=== PATIENT | female | born 1995 | race Caucasian/White ===

== ENCOUNTER 2016-07-16 08:00 | Observation (INO) | payer MEDICAID ==
[~2016-07-16] VITALS: Ht 165.1 cm; Wt 108.9 kg
[2016-07-23] MEDS ORDERED: SYNTHROID25 MCG PO (15:10)
[2016-07-23] MEDS ORDERED: PRENATAL VIT1 TAB PO (15:10)
[2016-07-28] MEDS ORDERED: COLACE-DPS100 MG PO (06:17)
[2016-07-28] MEDS ORDERED: MOTRIN-DPS800 MG PO (06:18)
[2016-07-28] MEDS ORDERED: PERCOCET 5 DPS1 TAB PO (06:18)
[2016-07-28] MEDS ORDERED: NIPPLECREAM TP (06:19)
--- NOTE | 2016-09-27 09:17 | DS ---
ADMIT: 07/21/2016 RM/LOC: 201 [facility] MR#: [id number] [address] [address] ALESSANDRA RYAN Bonifacio [address] [place], [place] [address] General Discharge Summary SEX: F AGE: 20 : 1995 ADMISSION DATE: 07/21/2016 DISCHARGE DATE: 07/22/2016 ADMISSION DIAGNOSIS: Intrauterine at term. DISCHARGE DIAGNOSIS: Intrauterine at term. The patient had failed induction of labor and was dismissed to home undelivered. Jaqueline Raza MD/ nic JOB #: [id number] CC: Jaqueline Raza MD, Attending Physician Fadumo Mcdonald MD, Family Physician
== END 2016-07-22 23:53 | disposition home or self-care (01) ==
LOC: EDSTATUS 08:00 → BC 08:00 → 2LDRP 07-21 18:50
PROVIDERS: ADMIT Obstetrics & Gynecology
DX: O61.9 Failed induction of labor, unspecified (principal); Z3A.40 40 weeks gestation of pregnancy; Z88.0 Allergy status to penicillin; Z88.8 Allergy status to other drugs, medicaments and biological substances; Z79.899 Other long term (current) drug therapy

== ENCOUNTER 2016-07-23 22:28 | Inpatient (IN) | payer MEDICAID ==
[~2016-07-23] VITALS: Ht 165.1 cm; Wt 108.9 kg
[~2016-07-23 22:28] MED LIST: PRENATAL VIT1 TAB PO; SYNTHROID25 MCG PO
--- NOTE | 2016-07-27 08:52 | HP ---
ADMIT: 07/23/2016 RM/LOC: 228 [facility] MR#: [id number] [address] [facility] [address] [place], [place] [address] ALESSANDRA HOANG [address] [place] [address] History and Physical SEX: F AGE: 20 : 1995 DATE OF SERVICE: CHIEF COMPLAINT: Uterine contractions. HISTORY OF PRESENT ILLNESS: This is a 20-year-old female, 1, para 0, who presented [facility] with an intrauterine at 41 weeks' gestation with estimated date of confinement of 07/16/2016. She presents with complaints of uterine contractions increasing in frequency and intensity. Her has been complicated by hypothyroidism and obesity. At the time of admission, she was noted to be 4 cm dilated and evelyn every 5 minutes. heart tones were also noted to be 170s with minimal variability. Therefore, she was admitted for labor. LABORATORY DATA: Blood type is O positive. Antibody screen negative. HIV negative. Hepatitis B surface antigen negative. RPR nonreactive. Rubella immune. Gonorrhea/Chlamydia is negative. Pap is negative. Quad screen negative. Diabetic screen is 97. Group B strep is negative. PAST MEDICAL HISTORY: Significant for hypothyroidism and depression. She denies hypertension, diabetes, asthma, kidney, or thyroid disease. PAST SURGICAL HISTORY: Tonsillectomy in 2004. SOCIAL HISTORY: She is not . The father of baby is involved. She denies tobacco, alcohol, or drug use. ALLERGIES: PENICILLIN AND CEPHALOSPORINS. CURRENT MEDICATIONS: 1. vitamins. 2. Synthroid. PHYSICAL EXAMINATION: VITAL SIGNS: Temperature 98.4, blood pressure 135/89, pulse 85, respirations 18. GENERAL: This is a pleasant female, in no acute distress. HEENT: Head is normocephalic, atraumatic. Pupils are equal, round, react to light and accommodation. Extraocular muscles are intact. NECK: Supple. HEART: Regular rate and rhythm. LUNGS: Clear bilaterally. ABDOMEN: Soft, nontender, nondistended, gravid. EXTREMITIES: Nontender. heart tones are 175 to 180 baseline, minimal variability is present, decelerations are absent, accelerations are absent as well, uterine ADMIT: 07/23/2016 RM/LOC: 228 [facility] MR#: [id number] [address] [address] ALESSANDRA HOANG [address] [place] [address] History and Physical SEX: F AGE: 20 : 1995 contractions every 4 minutes. Her cervix is 4 cm, 80%, -2 station. IMPRESSION: This is a 20-year-old female, 1, para 0, with an intrauterine at 41 weeks' gestation in labor. PLAN: At this time, we do plan to admit the patient for labor and monitoring. We will augment as needed. We will try traditional resuscitation measures including IV fluids, oxygen, position changes to see if variability of the baby's heart rate improves. If heart tones remain reassuring, then we will allow her to continue laboring. If the heart tones are persistently tachycardic with minimal variability, then we will discuss section for delivery. Vesta Albert MD/ nic JOB #: [id number] CC: Jaqueline Raza, Attending Physician Jaqueline Raza, Family Physician
--- NOTE | 2016-07-27 08:58 | OR ---
ADMIT: 07/23/2016 RM/LOC: 228 [facility] MR#: [id number] [facility] [address] [place], [place] [address] ALESSANDRA HOANG [address] [place] [address] Operative/Delivery Room Report SEX: F AGE: 20 : 1995 SURGERY DATE: 07/24/2016 SURGEON: Vesta Albert MD PREOPERATIVE DIAGNOSES: 1. Intrauterine at 41 weeks. 2. Labor. 3. Nonreassuring heart tones. POSTOPERATIVE DIAGNOSES: 1. Intrauterine at 41 weeks. 2. Labor. 3. Nonreassuring heart tones. 4. With delivery of a viable male at 0223 hours weighing 8 pounds 8 ounces, with scores of 8 at 1 minute, 9 at 5 minutes. PROCEDURE: Low transverse section. FIRE MARSHAL REFINERY: Deirdre Jerry MD Resident. ANESTHESIA: Spinal. COMPLICATIONS: None. ESTIMATED BLOOD LOSS: 500 mL. IV FLUIDS: Crystalloid. INDICATIONS: This is a 20-year-old female, 1, para 0, who presented to the [facility]thing Center with an intrauterine at 41 weeks' gestation complaining of uterine contractions. heart tones at admission were noted to be 170s to 180s with minimal variability, assisted rupture of membranes was performed. She would occasionally have periods of moderate variability, however, started to have variable decelerations. Therefore, given the heart tones, the risks, benefits, and alternatives to a section were discussed with the patient and she agreed to proceed. FINDINGS: Normal maternal uterus, tubes, and ovaries. Male , weighing 8 pounds 8 ounces, with scores of 8 at 1 minute, 9 at 5 minutes. PROCEDURE IN DETAIL: The patient was properly identified. Informed consent was obtained. She was then taken to the operating room where spinal anesthesia was placed. She was then placed in the dorsal supine position with a leftward tilt and prepped and draped in usual sterile fashion. After adequate spinal anesthesia was established, a Pfannenstiel skin incision was made with a scalpel. This was carried through to the underlying layer of fascia. The fascia was incised in the midline and the incision was extended laterally using the Gonzalez scissors. The superior aspect of the fascia was grasped with Chika clamps, elevated, and the underlying rectus muscles were dissected off. ADMIT: 07/23/2016 RM/LOC: 228 [facility] MR#: [id number] [address] [address] ALESSANDRA HOANG [address] [place] [address] Operative/Delivery Room Report SEX: F AGE: 20 : 1995 Attention was then turned to the inferior aspect of the fascia. In a similar manner, it was grasped with Chika clamps, elevated, and the underlying rectus muscles were dissected off. The rectus muscles were in the midline. The peritoneum was identified and entered bluntly. The peritoneal incision was extended with the stretch maneuver. The bladder blade was placed. The vesicouterine peritoneum was identified, grasped with pickups, and entered sharply with Metzenbaum scissors. The incision was extended laterally and bladder flap was created digitally. The bladder blade was then replaced and the lower uterine segment was incised in a transverse fashion with the scalpel. The uterine incision was extended with a stretch maneuver. The bladder blade was removed and the 's vertex was delivered atraumatically. The anterior and posterior shoulders as well as remainder of the infant were easily delivered. The did have spontaneous cry and movement of all 4 extremities. The cord was clamped x2 and the infant was taken to the warmer where nursing personnel and Dr. Ramona Linares, copier operator, were in attendance. Cord blood and cord pH were obtained. The placenta delivered with help from traction and uterine massage. A 20 units of Pitocin were infused with IV fluids to help firm the uterus. The uterus was exteriorized and cleared of all clot and debris. The uterine incision was repaired with 0 Vicryl in a running, locked fashion. A single [id number] stitch was placed to obtain excellent hemostasis. The uterus was returned to the abdomen. The gutters were cleared of all clot and debris. The uterine incision was reinspected and noted to be hemostatic. The posterior aspect of the rectus fascia and the rectus muscles were made hemostatic with use of electrocautery. The rectus fascia was reapproximated with 0 Vicryl in a running, nonlocking fashion. The subcutaneous tissues were made hemostatic with use of electrocautery. They were reapproximated with 2-0 plain. Subcuticular clare and Steri-Strips were applied. The patient tolerated the procedure well. Sponge, lap, needle, and instrument counts were correct. The patient was taken to recover in her Labor and Delivery suite with her infant. EDIT: 07/26/2016 0647 njv Vesta Albert MD/ nic JOB #: [id number] CC: Jaqueline Raza, Attending Physician Jaqueline Raza, Family Physician
[2016-07-28] MEDS ORDERED: COLACE-DPS100 MG PO (06:17)
[2016-07-28] MEDS ORDERED: MOTRIN-DPS800 MG PO (06:18)
[2016-07-28] MEDS ORDERED: PERCOCET 5 DPS1 TAB PO (06:18)
[2016-07-28] MEDS ORDERED: NIPPLECREAM TP (06:19)
--- NOTE | 2016-09-27 09:17 | DS ---
ADMIT: 07/23/2016 RM/LOC: 228 [facility] MR#: [id number] [address] [facility] [address] [place], [place] [address] ALESSANDRA RYAN [address] [place] [address] General Discharge Summary SEX: F AGE: 20 : 1995 ADMISSION DATE: 07/23/2016 DISCHARGE DATE: 07/27/2016 ADMISSION DIAGNOSES: 1. Intrauterine at term. 2. Active labor. 3. Nonreassuring heart tones. DISCHARGE DIAGNOSES: 1. Intrauterine at term. 2. Active labor. 3. Nonreassuring heart tones. PROCEDURES PERFORMED: Primary low transverse section performed on 07/24/2016, with delivery of liveborn male , scores 8 at 1 minute, 9 at 5 minutes. Weight 8 pounds 8 ounces. INDICATIONS FOR HOSPITALIZATION: The patient is a 20-year-old female, who was admitted on 07/23/2016 in active labor. The patient was noted to be in active labor. However, shortly after admission, the patient's heart tones were tachycardic with minimal variability, and so decision was made to proceed with primary section due to nonreassuring heart tones. POSTOPERATIVE COURSE: Postoperative day #1, the patient's pain was controlled. She was ambulating and voiding without difficulty. Postoperative hemoglobin was noted to be 11.6. By postoperative day #2, the patient was ambulating, voiding, and tolerating a regular diet and was deemed stable for discharge on postoperative day #3. DISCHARGE INSTRUCTIONS: The patient will be discharged to home. She is to continue Motrin and Percocet as needed for pain control. She is to follow up in the clinic in 2 weeks for an incision check and in 6 weeks for check. She is also to continue her home medications of Synthroid 25 mcg daily. Jaqueline Raza MD/ nic [place]: 08/30/2016 09:19:26 JOB #: [id number] CC: Vesta Albert MD, Attending Physician Jaqueline Raza MD, Family Physician
== END 2016-07-27 15:06 | disposition home or self-care (01) | DRG 765 ==
LOC: 2LDRP 22:28 → BC 22:28 → 2LDRP 23:02
PROVIDERS: ADMIT Obstetrics & Gynecology
PROC: 10907ZC Drainage of Amniotic Fluid, Therapeutic from Products of Conception, Via Natural or Artificial Opening (ICD-10-PCS; principal; 2016-07-24)
PROC: 10D00Z1 Extraction of Products of Conception, Low, Open Approach (ICD-10-PCS; principal; 2016-07-24)
DX: O48.0 Post-term pregnancy (principal); D62 Acute posthemorrhagic anemia; O90.81 Anemia of the puerperium; O99.284 Endocrine, nutritional and metabolic diseases complicating childbirth; E03.9 Hypothyroidism, unspecified; O77.0 Labor and delivery complicated by meconium in amniotic fluid; O99.344 Other mental disorders complicating childbirth; O76 Abnormality in fetal heart rate and rhythm complicating labor and delivery; F32.9 Major depressive disorder, single episode, unspecified; Z3A.41 41 weeks gestation of pregnancy; Z37.0 Single live birth